=== PATIENT | male | born 1985 | race Caucasian/White ===

== ENCOUNTER 2023-02-25 14:36 | Emergency (ER) | payer SELFPAY ==
[2023-02-25 15:12] VITALS: BP 162/108; PULSE 100; RESP 20; TEMP 35.9; O2SAT 100; BMI 26.2
--- NOTE | 2023-02-25 15:21 | ED.GENADULT ---
HPI - General Adult General Chief complaint: Skin/Abscess/Foreign Body Stated complaint: Rash History of Present Illness HPI narrative: Patient complains of itchy scabby rash on right arm left arm neck and back, he thinks some of it is from an ingrown hair He has had no fever no chills, the rash is irritating but not significantly painful Related Data Previous Rx's Medication Instructions Recorded cephalexin 500 mg tablet 500 mg PO QID 7 days #28 tabs 02/25/23 cetirizine 10 mg capsule 10 mg PO DAILY PRN allergy 02/25/23 symptoms #14 caps doxycycline hyclate 100 mg capsule 100 mg PO BID 7 days #14 caps 02/25/23 Allergies Allergy/AdvReac Type Severity Reaction Status Date / Time bee pollen [BEE STINGS] Allergy Unknown ANAPHYLAXIS Verified 02/25/23 15:16 penicillin V Allergy Unknown rash Verified 02/25/23 15:16 Penicillins [PENICILLINS] Allergy Unknown UNKNOWN Verified 02/25/23 15:16 [facility] Past Medical History Source: nursing notes reviewed Social History Social History Advance Directives: No Advance Directives Information Provided: No Physical Exam ED Vital Signs: Vital Signs - 24 hr 02/25/23 15:12 Temperature 96.7 F L Pulse Rate 100 Respiratory Rate 20 Blood Pressure 162/108 H Pulse Oximetry 100 Oxygen Delivery Method Room Air BMI result Body Mass Index 26.2 General appearance cheerful comfortable no distress Head is normocephalic atraumatic Neck is supple Respiratory no distress The pharynx is clear without redness swelling or exudate voice normal Extremities full range of motion x4 Skin on right arm back of the neck and 1 above the clavicle there are small pustules and scabbed areas with surrounding erythema that are mildly tender, there is no fluctuant abscess Course Course Course Narrative: Afebrile patient well-appearing with a pustular excoriated rash, no abscess, there is surrounding erythema, likely folliculitis/cellulitis is treated with Keflex and doxycycline He has a remote possible childhood allergy to penicillin which may have caused a rash so he observed for 15 minutes to rule out anaphylaxis after taking the Keflex and had no acute side event Medications Administered Discontinued Medications Generic Name Dose Route Start Last Admin Trade Name Freq PRN Reason Stop Dose Admin Cephalexin HCl 500 mg 02/25/23 15:15 02/25/23 15:23 Cephalexin 500 Mg Capsule PO 02/25/23 15:16 500 mg ONCE ONE Administration Doxycycline Monohydrate 100 mg 02/25/23 15:15 02/25/23 15:23 Doxycycline Monohydrate 100 Mg Capsule PO 02/25/23 15:16 100 mg ONCE ONE Administration Discharge Plan Discharge Clinical Impression: Cellulitis Patient Disposition: Home, Self-Care Additional Instructions: The rash is likely a skin infections we are treating with 2 antibiotics Keflex and doxycycline As 1 area of the rash is itchy I wrote a prescription for Claritin as well which is an antihistamine which may help with there is any allergic component Return any time for worsening rash fever pain any worse condition or any concerns Prescriptions: New doxycycline hyclate 100 mg capsule 100 mg PO BID 7 Days Qty: 14 0RF cephalexin 500 mg tablet 500 mg PO QID 7 Days Qty: 28 0RF cetirizine 10 mg capsule 10 mg PO DAILY PRN (Reason: allergy symptoms) Qty: 14 0RF
[2023-02-25] MEDS: Doxycycline Monohydrate 100 MG CAPSULE PO (15:23)
[2023-02-25] MEDS: cephALEXin 500 MG CAPSULE PO (15:23)
== END 2023-02-25 15:41 | disposition home or self-care (01) ==
PROVIDERS: Emergency Provider Emergency Medicine
DX: R21 Rash and other nonspecific skin eruption (principal); L03.221 Cellulitis of neck; L03.113 Cellulitis of right upper limb; L03.312 Cellulitis of back [any part except buttock and flank]
CPT/HCPCS: 99282; 99283